=== PATIENT | male | born 1975 | race Caucasian/White ===

== ENCOUNTER → 2017-01-27 | Outpatient (CLI) | payer BC ==
--- NOTE | 2017-01-27 11:46 | XR ---
EXAMINATION TYPE: XR hand complete RT DATE OF EXAM: 01/27/2017 CLINICAL HISTORY: Bilateral hand pain after injury. TECHNIQUE: Frontal, lateral and oblique images of the right hand are obtained. COMPARISON: None. FINDINGS: There is an impacted and comminuted fracture of the distal fifth metacarpal with volar and radial angulation of the metacarpal head. No secondary fractures are identified. The remaining joint spaces in the right hand appear within normal limits. Soft tissue swelling is seen in the lateral manzo d. IMPRESSION: Impacted, comminuted fracture of the distal fifth metacarpal with volar and radial angula tion of the distal fracture fragment.
== END | disposition home or self-care (01) ==
LOC: RADXRMAIN 11:25
PROVIDERS: ATTEND Internal Medicine
DX: S62.316A Displaced fracture of base of fifth metacarpal bone, right hand, initial encounter for closed fracture (principal)

== ENCOUNTER 2017-08-07 15:03 | Emergency (ER) | payer BC, MEDICAID ==
[2017-08-07] MEDS ORDERED: CLINDAMYCIN 600 MG in DEXTROSE 5% IN WATER 50 ML IVPB STA ×2 (16:10)
--- NOTE | 2017-08-07 16:16 | ED ---
General Adult HPI - General Chief complaint: Skin/Abscess/Foreign Body Stated complaint: poss blood clot Time Seen by Provider: 08/07/17 16:02 Source: patient, RN notes reviewed Mode of arrival: ambulatory Limitations: no limitations - History of Present Illness Initial comments: 42-year-old male presents to the emergency department with a chief complaint of left lower extremity pain and redness. Patient states that he noticed some redness down to the anterior aspect of the left leg and now he noticed streaking up the middle of the leg. He denies any health history. He denies any recent cough cold like symptoms. Denies any falls or traumas. He states he did feel like he maybe had a fever yesterday. He was concerned because it seemed to be getting worse today he thought that he should be seen. Patient denies any history of this in the past. Patient denies any recent shortness of breath, chest pain, back pain, abdominal pain, nausea vomiting, numbness or tingling, dysuria or hematuria, constipation or diarrhea, headaches or visual changes, or any other current symptoms. - Related Data Home Medications Medication Instructions Recorded Confirmed Acetaminophen [Tylenol Extra 1,000 mg PO Q6H PRN 08/07/17 08/07/17 Strength] Previous Rx's Medication Instructions Recorded Clindamycin [Cleocin] 450 mg PO Q8HR #90 capsule 08/07/17 Ibuprofen [Motrin] 600 mg PO Q6HR PRN #20 tab 08/07/17 Allergies Allergy/AdvReac Type Severity Reaction Status Date / Time No Known Allergies Allergy Verified 08/07/17 16:39 Review of Systems ROS Statement: Those systems with pertinent positive or pertinent negative responses have been documented in the HPI. ROS Other: All systems not noted in ROS Statement are negative. Past Medical History Past Medical History: No Reported History History of Any Multi-Drug Resistant Organisms: None Reported Past Surgical History: No Surgical Hx Reported Past Psychological History: No Psychological Hx Reported Smoking Status: Never smoker Past Alcohol Use History: None Reported Past Drug Use History: None Reported General Exam - General Exam Comments Initial Comments: General: The patient is awake and alert, in no distress, and does not appear acutely ill. Eye: Pupils are equal, round and reactive to light, extra-ocular movements are intact; there is normal conjunctiva bilaterally. No signs of icterus. Ears, nose, mouth and throat: There are moist mucous membranes. Neck: The neck is supple, there is no tenderness. Cardiovascular: There is a regular rate and rhythm. No murmur, rub or gallop is appreciated. Respiratory: Lungs are clear to auscultation, respirations are non-labored, breath sounds are equal. No wheezes, stridor, rales, or rhonchi. Gastrointestinal: Soft, non-distended, non-tender abdomen without masses or organomegaly noted. There is no rebound or guarding present. No CVA tenderness. Bowel sounds are unremarkable. Back: There is no tenderness to palpation in the midline. There is no obvious deformity. No rashes noted. Musculoskeletal: Normal ROM, some tenderness over the left anterior alexander into the left thigh with a streaking redness, There is no pedal edema. There is no calf tenderness or swelling. Sensation intact. Pulses equal bilaterally 2+. Neurological: CN II-XII intact, There are no obvious motor or sensory deficits. Coordination appears grossly intact. Speech is normal. Skin: Skin is warm and dry and no rashes or lesions are noted. Psychiatric: Cooperative, appropriate mood & affect, normal judgment. Limitations: no limitations Course Vital Signs 08/07/17 15:28 Temperature 98.5 F Pulse Rate 80 Respiratory 18 Rate Blood Pressure 138/87 O2 Sat by Pulse 98 Oximetry Medical Decision Making - Medical Decision Making 42-year-old male presents for left lower extremity redness. There does appear to be a cellulitis. At this time patient's lab work and ultrasound have been reviewed. At this time there is no white blood cell count patient has remained afebrile. We will start him on clindamycin for home. We did discuss return to the emergency department with did discuss follow-up we discussed all questions. Family and patient do seem to be in agreement with this plan. At this time they will be discharged - Lab Data Result diagrams: 08/07/17 16:22 08/07/17 16:22 Lab Results 08/07/17 08/07/17 Range/Units 16:22 16:22 WBC 8.6 (3.8-10.6) k/uL RBC 5.30 (4.30-5.90) m/uL Hgb 15.1 (13.0-17.5) gm/dL Hct 43.0 (39.0-53.0) % MCV 81.1 (80.0-100.0) fL MCH 28.5 (25.0-35.0) pg MCHC 35.1 (31.0-37.0) g/dL RDW 13.3 (11.5-15.5) % Plt Count 188 (150-450) k/uL Neutrophils % 69 % Lymphocytes % 17 % Monocytes % 9 % Eosinophils % 3 % Basophils % 0 % Neutrophils # 6.0 (1.3-7.7) k/uL Lymphocytes # 1.5 (1.0-4.8) k/uL Monocytes # 0.8 (0-1.0) k/uL Eosinophils # 0.2 (0-0.7) k/uL Basophils # 0.0 (0-0.2) k/uL Sodium 143 (137-145) mmol/L Potassium 4.0 (3.5-5.1) mmol/L Chloride 102 (98-107) mmol/L Carbon Dioxide 28 (22-30) mmol/L Anion Gap 13 mmol/L BUN 14 (9-20) mg/dL Creatinine 0.90 (0.66-1.25) mg/dL Est GFR (CKD-EPI)AfAm >90 (>60 ml/min/1.73 sqM) Est GFR (CKD-EPI)NonAf >90 (>60 ml/min/1.73 sqM) Glucose 94 (74-99) mg/dL Calcium 10.0 (8.4-10.2) mg/dL Total Bilirubin 0.7 (0.2-1.3) mg/dL AST 32 (17-59) U/L ALT 52 (21-72) U/L Alkaline Phosphatase 83 (38-126) U/L Total Protein 7.9 (6.3-8.2) g/dL Albumin 4.7 (3.5-5.0) g/dL Disposition Clinical Impression: Left leg cellulitis Disposition: HOME SELF-CARE Condition: Stable Instructions: Cellulitis (ED) Additional Instructions: Please use medication as discussed. Please follow up with family doctor if symptoms have not improved over the next two days. Please return to the emergency room if your symptoms increase or worsen or for any other concerns. Prescriptions: Clindamycin [Cleocin] 450 mg PO Q8HR #90 capsule Ibuprofen [Motrin] 600 mg PO Q6HR PRN #20 tab PRN Reason: Pain Referrals: Torrie Urena MD [Primary Care Provider] - 1-2 days Time of Disposition: 17:56
[2017-08-07 16:59] LABS: Basophils % (A) 0 %; Eosinophils # (A) 0.2 k/uL (0-0.7); Eosinophils % (A) 3 %; HGB 15.1 gm/dL (13.0-17.5); Lymphocytes # (A) 1.5 k/uL (1.0-4.8); Lymphocytes % (A) 17 %; MCH 28.5 pg (25.0-35.0); MCHC 35.1 g/dL (31.0-37.0); MCV 81.1 fL (80.0-100.0); Mean Platelet Volume 7.9; Monocytes # (A) 0.8 k/uL (0-1.0); Monocytes % (A) 9 %; Neutrophils % (A) 69 %; Platelet Count 188 k/uL (150-450); RDW 13.3 % (11.5-15.5); WBC 8.6 k/uL (3.8-10.6)
[2017-08-07 17:13] LABS: ALT 52 U/L (21-72); AST 32 U/L (17-59); Albumin 4.7 g/dL (3.5-5.0); Alkaline Phosphatase 83 U/L (38-126); Anion Gap 13 mmol/L; Blood Urea Nitrogen 14 mg/dL (9-20); Carbon Dioxide 28 mmol/L (22-30); Chloride 102 mmol/L (98-107); Glucose 94 mg/dL (74-99); Sodium 143 mmol/L (137-145); Total Bilirubin 0.7 mg/dL (0.2-1.3); Total Protein 7.9 g/dL (6.3-8.2)
--- NOTE | 2017-08-07 17:31 | XR ---
EXAMINATION TYPE: XR knee complete LT DATE OF EXAM: 08/07/2017 CLINICAL HISTORY: pain TECHNIQUE: Three views of the left knee are obtained. COMPARISON: None. FINDINGS: There is no acute fracture/dislocation. The tri-compartment joint spaces appear within no rmal limits. The overlying soft tissue appears unremarkable. IMPRESSION: There is no acute fracture or dislocation ICD 10 NO FRACTURE, INITIAL EVALUATION
--- NOTE | 2017-08-07 17:53 | US ---
EXAMINATION TYPE: US venous doppler duplex LE LT DATE OF EXAM: 08/07/2017 5:42 PM COMPARISON: NONE CLINICAL HISTORY: Pain. Redness and pain SIDE PERFORMED: Left TECHNIQUE: The lower extremity deep venous system is examined utilizing real time linear array sonog lynda with graded compression, doppler sonography and color-flow sonography. VESSELS IMAGED: External Iliac Vein (EIV) Common Femoral Vein Deep Femoral Vein Greater Saphenous Vein * Femoral Vein Popliteal Vein Small Saphenous Vein * Proximal Calf Veins (* superficial vessels) Grayscale, color doppler, spectral doppler imaging performed of the deep veins of the lower extremiti es. There is normal flow, compressibility, vascular waveforms. Left Leg: Negative for DVT IMPRESSION: No evidence for DVT.
[2017-08-07 18:14] VITALS: BP 139/77; PULSE 78; RESP 16; TEMP 98
== END 2017-08-07 18:13 | disposition home or self-care (01) ==
LOC: EC 15:03
DX: L03.116 Cellulitis of left lower limb (principal)
CPT/HCPCS: 36415; 80053; 85025; 87040; 96365; 99284

== ENCOUNTER 2018-12-12 11:49 | Emergency (ER) | payer MEDICAID ==
[2018-12-12 12:05] VITALS: RESP 18
[2018-12-12] MEDS ORDERED: MECLIZINE 12.5 MG TAB PO STA (12:28)
--- NOTE | 2018-12-12 12:32 | ED ---
General Adult HPI - General Chief complaint: Dizziness Stated complaint: Dizziness Time Seen by Provider: 12/12/18 12:15 Source: patient Mode of arrival: ambulatory Limitations: no limitations - History of Present Illness Initial comments: Patient is a 43-year-old male with no past medical history presents with chief complaint of dizziness. The patient states it started yesterday. States initially he tried to get out of bed. He states that he got very dizzy and fell. He did not sustain any injuries and was able to get himself back up. He states that his specific movement such as lying to standing. He states that he is able to sit still for about a minute his symptoms resolved. He has not had any previous episodes of the same. dizziness as the room is spinning around him. He states that it is aggravated by - Related Data Home Medications Medication Instructions Recorded Confirmed Acetaminophen [Tylenol Extra 1,000 mg PO Q6H PRN 08/07/17 08/07/17 Strength] Previous Rx's Medication Instructions Recorded Clindamycin [Cleocin] 450 mg PO Q8HR #90 capsule 08/07/17 Ibuprofen [Motrin] 600 mg PO Q6HR PRN #20 tab 08/07/17 Meclizine [Antivert] 25 mg PO TID #12 tab 12/12/18 Allergies Allergy/AdvReac Type Severity Reaction Status Date / Time No Known Allergies Allergy Verified 12/12/18 12:04 Review of Systems ROS Statement: Those systems with pertinent positive or pertinent negative responses have been documented in the HPI. ROS Other: All systems not noted in ROS Statement are negative. Neurological: Reports: vertigo Past Medical History Past Medical History: No Reported History History of Any Multi-Drug Resistant Organisms: None Reported Past Surgical History: No Surgical Hx Reported Past Psychological History: No Psychological Hx Reported Smoking Status: Never smoker Past Alcohol Use History: None Reported Past Drug Use History: None Reported General Exam Limitations: no limitations General appearance: alert, in no apparent distress Head exam: Present: atraumatic, normocephalic Eye exam: Present: normal appearance, PERRL, EOMI ENT exam: Present: normal exam Neck exam: Present: normal inspection Respiratory exam: Present: normal lung sounds bilaterally. Absent: respiratory distress, wheezes Cardiovascular Exam: Present: regular rate, normal rhythm GI/Abdominal exam: Present: soft. Absent: distended, tenderness Rectal exam: Present: deferred Extremities exam: Present: normal inspection Back exam: Present: normal inspection Neurological exam: Present: alert, oriented X3, CN II-XII intact, normal gait Psychiatric exam: Present: normal affect, normal mood Skin exam: Present: warm, dry, intact Course Vital Signs 12/12/18 12:02 Temperature 98.1 F Pulse Rate 69 Respiratory 18 Rate Blood Pressure 116/74 O2 Sat by Pulse 96 Oximetry Medical Decision Making - Medical Decision Making Patient presents with a chief complaint of vertigo. On initial evaluation, vital signs are stable, patient is in no acute distress. He will be given a dose of Antivert. Neurologically, the patient is intact, he does not have any focal deficit. History is consistent with vertigo. 14. On reevaluation, the patient is feeling better. He's able ambulate well without assistance. This time is stable for discharge. Patient prescribed Antivert and given instructions on the [place] maneuver. Patient was instructed to follow up with primary care in 1-2 days, return to the ED if symptoms worsen or change. Disposition Clinical Impression: BPPV (benign paroxysmal positional vertigo) Disposition: HOME SELF-CARE Condition: Good Instructions (If sedation given, give patient instructions): Benign Paroxysmal Positional Vertigo (ED) Prescriptions: Meclizine [Antivert] 25 mg PO TID #12 tab Is patient prescribed a controlled substance at d/c from ED?: No Referrals: Torrie Urena MD [Primary Care Provider] - 1-2 days
[2018-12-12 13:42] VITALS: BP 123/82; PULSE 54; TEMP 97.8
== END 2018-12-12 13:40 | disposition home or self-care (01) ==
LOC: EC 11:49
DX: H81.10 Benign paroxysmal vertigo, unspecified ear (principal)
CPT/HCPCS: 99283

== ENCOUNTER 2020-01-20 19:31 | Emergency (ER) | payer MEDICAID ==
--- NOTE | 2020-01-20 19:51 | ED ---
General Adult HPI - General Chief complaint: Abdominal Pain Stated complaint: Abd Pain Time Seen by Provider: 01/20/20 19:39 Source: patient Mode of arrival: ambulatory Limitations: no limitations - History of Present Illness Initial comments: Dictation was produced using [employer] dictation software. please excuse any grammatical, word or spelling errors. This patient was cared for during a federal and state declared state of emergency secondary to Covid 19 Chief Complaint: 44-year-old male presents with suprapubic left lower quadrant abdominal pain History of Present Illness: 44-year-old male with the last couple days he's been having worsening suprapubic left lower quadrant abdominal pain. He states his symptoms began with left lower quadrant and left flank pain. He states the pain now transitioned to the left lower quadrant. He does report having subjective fevers at home. Patient denies any history of diverticulitis. Does not report that his pain is colicky. He does feel like his symptoms get worse when his family car and they hit some bumps. Patient has any surgical history. Denies any medical history. He does feel some nausea. The ROS documented in this emergency department record has been reviewed and confirmed by me. Those systems with pertinent positive or negative responses have been documented in the HPI. All other systems are other negative and/or noncontributory. PHYSICAL EXAM: General Impression: Alert and oriented x3, not in acute distress HEENT: Normocephalic atraumatic, extra-ocular movements intact, pupils equal and reactive to light bilaterally, mucous membranes moist. Cardiovascular: Heart regular rate and rhythm Chest: Able to complete full sentences, no retractions, no tachypnea Abdomen: abdomen soft, tenderness to the left lower quadrant suprapubic area, no tenderness to palpation at McBurney's point, no rebound tenderness, non- distended, no organomegaly Musculoskeletal: Pulses present and equal in all extremities, no peripheral edema Motor: no focal deficits noted Neurological: CN II-XII grossly intact, no focal motor or sensory deficits noted Skin: Intact with no visualized rashes Psych: Normal affect and mood ED course: 44 year-old male presents with abdominal pain all signs upon arrival shows temperature 100.1, heart rate of 101, respiratory signs within acceptable limits. There is clinical concern of diverticulitis. CT of the abdomen and pelvis was obtained showing moderate sigmoid diverticulitis. Laboratory evaluation obtained white count of 17.2. Rest of labs are unremarkable. Patient tolerating oral trial. Results are discussed with patient. He is given prescription for Flagyl and ciprofloxacin. He is advised to follow up with his primary care physician. Return parameters discussed. He understands that he has a intra-abdominal infection that could get worse. He is told to seek medical attention immediately if he has difficulties swallowing worsening abdominal pain and fevers. Patient tolerate oral. He is given a dose of Flagyl and ciprofloxacin at bedside prior to discharge. Patient agreeable with disposition plan. - Related Data Home Medications Medication Instructions Recorded Confirmed Acetaminophen [Tylenol Extra 1,000 mg PO Q6H PRN 08/07/17 12/12/18 Strength] Previous Rx's Medication Instructions Recorded Meclizine [Antivert] 25 mg PO TID #12 tab 12/12/18 Ciprofloxacin [Cipro Susp] 500 mg PO BID 14 Days #28 ml 01/20/20 metroNIDAZOLE [Flagyl] 500 mg PO TID 14 Days #42 tab 01/20/20 Allergies Allergy/AdvReac Type Severity Reaction Status Date / Time No Known Allergies Allergy Verified 01/20/20 19:35 Review of Systems ROS Statement: Those systems with pertinent positive or pertinent negative responses have been documented in the HPI. ROS Other: All systems not noted in ROS Statement are negative. Past Medical History Past Medical History: No Reported History History of Any Multi-Drug Resistant Organisms: None Reported Past Surgical History: No Surgical Hx Reported Past Psychological History: No Psychological Hx Reported Smoking Status: Never smoker Past Alcohol Use History: None Reported Past Drug Use History: None Reported General Exam Limitations: no limitations Course Vital Signs 01/20/20 01/20/20 19:33 20:35 Temperature 100.1 F H 100.3 F H Pulse Rate 101 H 78 Respiratory 20 16 Rate Blood Pressure 163/85 132/66 O2 Sat by Pulse 98 95 Oximetry Medical Decision Making - Lab Data Result diagrams: 01/20/20 20:10 01/20/20 20:10 Lab Results 01/20/20 01/20/20 01/20/20 Range/Units 20:10 20:10 20:10 WBC 17.2 H (3.8-10.6) k/uL RBC 5.33 (4.30-5.90) m/uL Hgb 14.6 (13.0-17.5) gm/dL Hct 44.3 (39.0-53.0) % MCV 83.1 (80.0-100.0) fL MCH 27.4 (25.0-35.0) pg MCHC 32.9 (31.0-37.0) g/dL RDW 13.2 (11.5-15.5) % Plt Count 216 (150-450) k/uL Neutrophils % 85 % Lymphocytes % 6 % Monocytes % 5 % Eosinophils % 3 % Basophils % 0 % Neutrophils # 14.6 H (1.3-7.7) k/uL Lymphocytes # 1.0 (1.0-4.8) k/uL Monocytes # 0.9 (0-1.0) k/uL Eosinophils # 0.5 (0-0.7) k/uL Basophils # 0.1 (0-0.2) k/uL Sodium 141 (137-145) mmol/L Potassium 4.3 (3.5-5.1) mmol/L Chloride 104 (98-107) mmol/L Carbon Dioxide 26 (22-30) mmol/L Anion Gap 11 mmol/L BUN 12 (9-20) mg/dL Creatinine 0.90 (0.66-1.25) mg/dL Est GFR (CKD-EPI)AfAm >90 (>60 ml/min/1.73 sqM) Est GFR (CKD-EPI)NonAf >90 (>60 ml/min/1.73 sqM) Glucose 101 H (74-99) mg/dL Calcium 9.5 (8.4-10.2) mg/dL Total Bilirubin 0.7 (0.2-1.3) mg/dL AST 31 (17-59) U/L ALT 27 (4-49) U/L Alkaline Phosphatase 78 (38-126) U/L Total Protein 7.9 (6.3-8.2) g/dL Albumin 4.7 (3.5-5.0) g/dL Urine Color Light Yellow Urine Appearance Clear (Clear) Urine pH 5.0 (5.0-8.0) Ur Specific [place] 1.009 (1.001-1.035) Urine Protein Negative (Negative) Urine Glucose (UA) Negative (Negative) Urine Ketones Negative (Negative) Urine Blood Negative (Negative) Urine Nitrite Negative (Negative) Urine Bilirubin Negative (Negative) Urine Urobilinogen <2.0 (<2.0) mg/dL Ur Leukocyte Esterase Negative (Negative) Disposition Clinical Impression: Diverticulitis Disposition: HOME SELF-CARE Condition: Fair Instructions (If sedation given, give patient instructions): Diverticulitis (ED) Prescriptions: Ciprofloxacin [Cipro Susp] 500 mg PO BID 14 Days #28 ml metroNIDAZOLE [Flagyl] 500 mg PO TID 14 Days #42 tab Is patient prescribed a controlled substance at d/c from ED?: No Referrals: Torrie Urena MD [Primary Care Provider] - 1-2 days Time of Disposition: 22:00
[2020-01-20 20:20] LABS: Basophils # (A) 0.1 k/uL (0-0.2); Basophils % (A) 0 %; Eosinophils # (A) 0.5 k/uL (0-0.7); Eosinophils % (A) 3 %; HCT 44.3 % (39.0-53.0); HGB 14.6 gm/dL (13.0-17.5); Lymphocytes % (A) 6 %; MCH 27.4 pg (25.0-35.0); MCHC 32.9 g/dL (31.0-37.0); MCV 83.1 fL (80.0-100.0); Mean Platelet Volume 8.5; Monocytes # (A) 0.9 k/uL (0-1.0); Monocytes % (A) 5 %; Neutrophils # (A) 14.6 k/uL (1.3-7.7); Neutrophils % (A) 85 %; Platelet Count 216 k/uL (150-450); RBC 5.33 m/uL (4.30-5.90); RDW 13.2 % (11.5-15.5); WBC 17.2 k/uL (3.8-10.6)
[2020-01-20 20:21] LABS: Appearance,Urine Clear (Clear); Bilirubin,Urine Negative (Negative); Blood,Urine Negative (Negative); Color,Urine Light Yellow; Glucose,Urine (UA) Negative (Negative); Ketones,Urine Negative (Negative); Leukocyte Esterase,Urine Negative (Negative); Nitrite,Urine Negative (Negative); Protein,Urine Negative (Negative); Specific Gravity,Urine 1.009 (1.001-1.035); Urobilinogen,Urine <2.0 mg/dL (<2.0)
[2020-01-20 20:29] LABS: ALT 27 U/L (4-49); AST 31 U/L (17-59); African American GFR (CKD) >90 (>60 ml/min/1.73 sqM); Albumin 4.7 g/dL (3.5-5.0); Alkaline Phosphatase 78 U/L (38-126); Anion Gap 11 mmol/L; Blood Urea Nitrogen 12 mg/dL (9-20); Calcium 9.5 mg/dL (8.4-10.2); Carbon Dioxide 26 mmol/L (22-30); Chloride 104 mmol/L (98-107); Glucose 101 mg/dL (74-99); Non-African American GFR(CKD) >90 (>60 ml/min/1.73 sqM); Potassium 4.3 mmol/L (3.5-5.1); Sodium 141 mmol/L (137-145); Total Bilirubin 0.7 mg/dL (0.2-1.3); Total Protein 7.9 g/dL (6.3-8.2)
--- NOTE | 2020-01-20 21:16 | CT ---
EXAMINATION TYPE: CT abdomen pelvis w con DATE OF EXAM: 01/20/2020 COMPARISON: None HISTORY: LLQ pain that is now felt centrally. Diverticulitis suspected. CT DLP: 1990.7 mGycm Automated exposure control for dose reduction was used. TECHNIQUE: Helical acquisition of images was performed from the lung bases through the pelvis. CONTRAST: Performed without Oral Contrast and with IV Contrast, patient injected with 100 mL of Isovu e 300. FINDINGS: LUNG BASES: No significant abnormality is appreciated. LIVER/GB: No significant abnormality is appreciated. PANCREAS: No significant abnormality is seen. SPLEEN: No significant abnormality is seen. ADRENALS: No significant abnormality is seen. KIDNEYS: No significant abnormality is seen. RETROPERITONEAL ADENOPATHY: None visualized REPRODUCTIVE ORGANS: No significant abnormality is seen URINARY BLADDER: No significant abnormality is seen. PELVIC ADENOPATHY: None visualized. OSSEOUS STRUCTURES: No significant abnormality is seen. BOWEL: The proximal and mid sigmoid colon shows circumferential mural thickening and indistinctness a nd there is perisigmoid edematous reticulation. These changes are consistent with sigmoid diverticuli tis. Tiny lymph nodes are noted within the sigmoid mesocolon. Eventual follow-up colonoscopy is advis ed, to ensure normal underlying mucosa. PERITONEAL CAVITY: No pneumoperitoneum or peritoneal fluid. OTHER: No acute vascular findings. IMPRESSION: MODERATE SIGMOID DIVERTICULITIS, DISCUSSED.
[2020-01-20] MEDS ORDERED: LEVOFLOXACIN 500 MG TAB PO STA (21:36)
[2020-01-20] MEDS ORDERED: metroNIDAZOLE 500 MG TAB PO STA (21:36)
[2020-01-20] MEDS ORDERED: ACETAMINOPHEN TAB 500 MG TAB PO STA (22:00)
[2020-01-20 22:04] VITALS: BP 125/64; PULSE 79; RESP 18; TEMP 99.1
== END 2020-01-20 22:18 | disposition home or self-care (01) ==
LOC: EC 19:31
DX: K57.32 Diverticulitis of large intestine without perforation or abscess without bleeding (principal)
CPT/HCPCS: 36415; 80053; 85025; 81003; 74177; 99284; Q9967

== ENCOUNTER → 2020-03-13 | Outpatient (CLI) | payer MEDICAID | END | disposition home or self-care (01) | LOC: LABWHC1 07:42 | PROVIDERS: ATTEND Student in an Organized Health Care Education/Training Program | DX: U07.1 COVID-19 (principal) | CPT/HCPCS: U0003; C9803 ==

== ENCOUNTER 2020-03-16 11:31 | Day surgery (SDC) | payer MEDICAID ==
[2020-03-14 14:37] VITALS: BMI 30.8
[~2020-03-16 11:31] MED LIST: LACTATED RINGERS 1,000 ML IV SCH
[2020-03-16 11:56] VITALS: RESP 16; TEMP 97.2
[2020-03-16] MEDS ORDERED: PROPOFOL 10 MG/ML 20 ML VIAL IV ONE (12:30)
--- NOTE | 2020-03-16 12:54 | P.OP ---
Date of Procedure: 03/16/20 Preoperative Diagnosis: Diverticulitis Postoperative Diagnosis: Diverticulosis Procedure(s) Performed: Colonoscopy Anesthesia: MAC Surgeon: Simon Major Estimated Blood Loss (ml): 0 Disposition: PACU Description of Procedure: Patient brought Endo suite placed in left lateral decubitus position underwent sedation per department of anesthesia timeout performed correct patient correct procedure correct site was verified rectal exam was performed no gross abnormalities are noted scope was passed from the rectum to the cecum with the slowly withdrawn being sure to visualize all harrison the colon on the way out there was pandiverticulosis noted worse in the sigmoid colon. Scope was retroflexed in rectum no gross abnormalities are noted scope was removed patient tolerated the procedure well no apparent complications he'll need a repeat colonoscopy at age 52
[2020-03-16 13:27] VITALS: BP 125/67; PULSE 71
== END 2020-03-16 13:34 | disposition home or self-care (01) ==
LOC: ORWHC2ENDO 11:31
PROVIDERS: ATTEND Student in an Organized Health Care Education/Training Program
DX: K57.30 Diverticulosis of large intestine without perforation or abscess without bleeding (principal); Z86.69 Personal history of other diseases of the nervous system and sense organs; Z82.49 Family history of ischemic heart disease and other diseases of the circulatory system; Z79.899 Other long term (current) drug therapy; Z98.890 Other specified postprocedural states
CPT/HCPCS: 45378; J2704

== ENCOUNTER 2021-04-03 01:59 | Emergency (ER) | payer MEDICAID ==
[2021-04-03 02:09] VITALS: RESP 18; TEMP 98.7
--- NOTE | 2021-04-03 02:22 | XR ---
EXAMINATION TYPE: XR ribs LT w pa chest xray DATE OF EXAM: 04/03/2021 COMPARISON: NONE HISTORY: Left rib pain TECHNIQUE: 5 views FINDINGS: There is some linear density at the left lung base. Heart and mediastinum are normal. Right lung is clear. There is no pleural effusion or pneumothorax. The left ribs are intact. IMPRESSION: There is some atelectasis left lung base. No rib fracture seen. No pneumothorax.
--- NOTE | 2021-04-03 03:39 | ED ---
General Adult HPI - General Chief complaint: Recheck/Abnormal Lab/Rx Stated complaint: Fall, SOB Time Seen by Provider: 04/03/21 03:29 Source: patient Mode of arrival: ambulatory Limitations: no limitations - History of Present Illness Initial comments: This patient is a 45-year-old man who presents with complaint of sharp left- sided chest pain. He indicates the ribs at the costal margin on the left, anteriorly. The patient states that approximately one week ago he had fallen against the box of a truck. There was some mild discomfort but it had resolved. Tonight he was in process of moving and then developed sharp pain and was not able to draw a breath. The patient states that after bit the symptoms subsided he was able to breathe again, but now he finds that when he changes from supine to upright that symptom does briefly recur. They're sharp left chest pain and it feels like he can't draw breath for a bit before it subsides. No cough or hemoptysis. No fever or chills. No leg pain or swelling. No other injuries. There is no abdominal pain. -: hour(s) Location: chest Radiation: non-radiation Quality: sharp Consistency: intermittent Improves with: none Worsens with: movement Associated Symptoms: denies other symptoms Treatments Prior to Arrival: NSAID - Related Data Previous Rx's Medication Instructions Recorded Azithromycin [Zithromax Z-pack (6 250 mg PO DIRECTED #6 tab 04/03/21 tabs)] HYDROcodone/APAP 5-325MG [[place] 1 tab PO Q4HR PRN 3 Days #18 tab 04/03/21 5-325] Allergies Allergy/AdvReac Type Severity Reaction Status Date / Time No Known Allergies Allergy Verified 04/03/21 02:09 Review of Systems ROS Statement: Those systems with pertinent positive or pertinent negative responses have been documented in the HPI. ROS Other: All systems not noted in ROS Statement are negative. Constitutional: Denies: fever, chills Respiratory: Reports: as per HPI. Denies: cough, dyspnea, hemoptysis Cardiovascular: Reports: as per HPI, chest pain. Denies: palpitations, orthopnea, edema, syncope Gastrointestinal: Denies: abdominal pain, nausea, vomiting, diarrhea Musculoskeletal: Denies: back pain Past Medical History Past Medical History: No Reported History History of Any Multi-Drug Resistant Organisms: None Reported Past Surgical History: No Surgical Hx Reported Past Psychological History: No Psychological Hx Reported Smoking Status: Never smoker Past Alcohol Use History: None Reported Past Drug Use History: None Reported General Exam Limitations: no limitations General appearance: alert, in no apparent distress Head exam: Present: atraumatic, normocephalic Eye exam: Present: normal appearance. Absent: scleral icterus, conjunctival injection Respiratory exam: Present: normal lung sounds bilaterally, chest wall tenderness. Absent: respiratory distress, wheezes, rales, rhonchi, stridor, accessory muscle use, decreased breath sounds Cardiovascular Exam: Present: regular rate, normal rhythm, normal heart sounds. Absent: systolic murmur, diastolic murmur, rubs, gallop GI/Abdominal exam: Present: soft. Absent: distended, tenderness, guarding, rebound, rigid, mass Extremities exam: Present: normal inspection, normal capillary refill. Absent: pedal edema, calf tenderness Back exam: Present: normal inspection. Absent: CVA tenderness (R), CVA tenderness (L) Neurological exam: Present: alert Skin exam: Present: warm, dry, intact, normal color. Absent: rash Course Vital Signs 04/03/21 02:07 Temperature 98.7 F Pulse Rate 76 Respiratory 18 Rate Blood Pressure 150/93 O2 Sat by Pulse 98 Oximetry Disposition Clinical Impression: Chest wall injury Disposition: HOME SELF-CARE Condition: Good Instructions (If sedation given, give patient instructions): Chest Wall Pain (ED) Prescriptions: HYDROcodone/APAP 5-325MG [[place] 5-325] 1 tab PO Q4HR PRN 3 Days #18 tab PRN Reason: Pain Azithromycin [Zithromax Z-pack (6 tabs)] 250 mg PO DIRECTED #6 tab Is patient prescribed a controlled substance at d/c from ED?: Yes When asked, does pt state using other controlled substances?: No If prescribed controlled substance>3 days was MAPS reviewed?: Prescribed <3 Days If opioid is for acute pain is fill amount 7 days or less?: Yes If Rx opioid, was Start Talking consent form obtained?: Yes Referrals: Torrie Urena MD [Primary Care Provider] - 1-2 days
[2021-04-03] MEDS ORDERED: traMADol 50 MG STARTER PACK 3 TAB BTL PO STA (03:57)
[2021-04-03 04:39] VITALS: BP 148/83; PULSE 66
== END 2021-04-03 04:39 | disposition home or self-care (01) ==
LOC: EC 01:59
DX: S29.8XXA Other specified injuries of thorax, initial encounter (principal); W22.8XXA Striking against or struck by other objects, initial encounter
CPT/HCPCS: 99284